=== PATIENT | male | born 1950 | race Caucasian/White ===

== ENCOUNTER → 2020-10-24 | Outpatient (CLI) | payer MEDICARE ==
--- NOTE | 2020-10-21 16:42 | PREOP HP ---
DATE OF SERVICE: 10/27/2020 PREOPERATIVE HISTORY AND PHYSICAL DATE OF ADMISSION: 10/27/2020. HISTORY OF PRESENT ILLNESS: The patient is a pleasant 70-year-old man who is having difficulty with low back pain and pain that radiates bilaterally into his anterior thighs and anterior legs as well as right buttock and right posterior thigh. The anterior thigh pain occurs with standing and activities. Leaning forward helps him with that pain. When he sits in his truck and drives any distance, his right buttock becomes painful. He notices pain, which radiates down the posterior thigh. Both of these pains occur separately. He says his back problems have been much worse in the last 6 months. Walking markedly increases his anterior thigh and anterior leg pain. Standing from a seated position is also very painful for him. He is taking tramadol, Tylenol and meloxicam. He had chiropractic treatment of 12 visits, which gave him no relief. In 1995, he underwent lumbar surgery and did well. He has chronic right knee difficulties. CURRENT MEDICATIONS: Melatonin, vitamin B12, aspirin, atorvastatin, tamsulosin, hydrochlorothiazide, citalopram, quinapril, verapamil, meloxicam, Tylenol, tramadol. PAST MEDICAL HISTORY: Arthritis, hypertension. PAST SURGICAL HISTORY: Lumbar surgery in 1995, Dr. Flor. FAMILY HISTORY: Noncontributory. SOCIAL HISTORY: Retired, , nonsmoker, never drinks alcohol. ALLERGIES: No known drug allergies. REVIEW OF SYSTEMS: A 12-point review of systems was performed and is noncontributory except that mentioned above. PHYSICAL EXAMINATION: GENERAL: Alert, pleasant, in no acute distress. HEENT: Head normocephalic, atraumatic. SKIN: Warm and dry. MUSCULOSKELETAL: Lumbar paraspinal muscle bulk is normal, restricted range of motion of the lumbar spine, [id number] tenderness of the lower lumbar spine with palpation, normal range of motion of the lower extremities bilaterally. EXTREMITIES: No clubbing, cyanosis or edema. NEUROLOGIC: Alert and oriented x 3. Normal recent and remote memory. Strength is 5/5 in bilateral lower extremities. Sensory was intact to light touch in the lower extremities. Reflexes were trace and symmetric in the lower extremities bilaterally. Negative straight leg raising bilaterally. Forward stooped gait. IMAGING DATA: I reviewed a Lumbar MRI scan at L2-L3, there is significant bilateral hypertrophic facet disease along with disc bulging which is associated with marked narrowing of the canal and relatively severe stenosis. At L3-L4, postop changes are present, but the canal is trefoil shaped worse on the right side than the left. At L5-S1, there is hypertrophic facet disease and disc bulging which is associated with right-sided lateral recess and neural foraminal narrowing. ASSESSMENT AND PLAN: I believe the problems at L2-L3 and on the right side at L3-L4 are responsible for his back and anterior thigh pain. I have recommended bilateral lumbar microdecompressive surgery at L2-L3 bilaterally and L3-L4 on the right. I explained to him that in the future, he may require surgery at L5-S1 on the right, but to consider it now would be too much surgery for him. He understands the surgery and the technique and the risk and the expected postoperative course. He would like to go ahead. We will make the arrangements. RAJESH DR: Otf TID: [id number] [place]
[~2020-10-24] MED LIST: ACET325T9 PO; ASPI-630 PO; ATOR80TA72 PO; CITA40TA12 PO; DOCU-153 PO; HYDR-2761 PO; HYDR50TA9 PO; MELA5CAP PO; MELO15TA23 PO; METH-562 PO; QUIN40TA16 PO; TAMS0.4C97 PO; TRAM-48 PO; TRAM1TAB4 PO; VERA240C2 PO; VITA1CAP PO
[2020-10-24 15:50] LABS: BASO % 1 % (0-3); EOS # 0.6 x10^3/uL (0.0-0.7); EOS % 7 % (0-3); HEMATOCRIT 44.2 % (39.0-53.0); HEMOGLOBIN 14.8 g/dL (13.0-17.5); LYMPH # 1.6 x10^3/uL (1.0-4.8); LYMPH % 19 % (24-48); MEAN CORPUSCULAR HEMOGLOBIN 34 pg (25-35); MEAN CORPUSCULAR HGB CONC 34 g/dL (31-37); MEAN CORPUSCULAR VOLUME 100 fL (79-100); MONO # 0.7 x10^3/uL (0.0-1.1); MONO % 8 % (0-9); NEUT # 5.5 x10^3/uL (1.8-7.7); NEUT % 65 % (31-73); PLATELET COUNT 269 x10^3/uL (140-400); RED BLOOD COUNT 4.41 x10^6/uL (4.30-5.70); RED CELL DISTRIBUTION WIDTH 12.9 % (11.5-14.5); WHITE BLOOD COUNT 8.4 x10^3/uL (4.0-11.0)
[2020-10-24 16:09] LABS: ALBUMIN 4.2 g/dL (3.4-5.0); ALBUMIN/GLOBULIN RATIO 1.5 (1.0-1.7); CREATININE 1.2 mg/dL (0.7-1.3); POTASSIUM 4.2 mmol/L (3.5-5.1); TOTAL BILIRUBIN 0.2 mg/dL (0.2-1.0)
== END ==
LOC: SURGPAT 13:50
PROVIDERS: ATTEND Neurological Surgery
DX: Z01.812 Encounter for preprocedural laboratory examination (principal); M54.16 Radiculopathy, lumbar region; M48.061 Spinal stenosis, lumbar region without neurogenic claudication; Z20.822 Contact with and (suspected) exposure to COVID-19
CPT/HCPCS: 80053; 85025; 87641; U0003; U0005

== ENCOUNTER 2020-10-27 08:34 | Observation (INO) | payer MEDICARE, OTHER ==
[2020-10-26 09:44] VITALS: BP 134/82
[~2020-10-27] VITALS: Ht 182.9 cm; Wt 95.8 kg
[2020-10-27] VITALS (7 sets, daily range): BP systolic 83–105; BP diastolic 42–61
[~2020-10-27 08:34] MED LIST changes: -ACET325T9 PO; -ASPI-630 PO; -ATOR80TA72 PO; +BUPIVACAINE-EPI 0.5%-1:200000 MPF 30 ML VIAL. ONE; -CITA40TA12 PO; -DOCU-153 PO; +GELATIN SPONGE SIZE 100. ONE; -HYDR-2761 PO; -HYDR50TA9 PO; +HYDROmorphone 2 MG/ML VIAL IVP PRN; +IV RINGERS,LACTATED 1000ML 1,000 ML IV SCH; +KETOROLAC 60 MG/2 ML VIAL. ONE; -MELA5CAP PO; -MELO15TA23 PO; -METH-562 PO; +MORPHINE SULFATE 2 MG/ML VIAL. IVP PRN; +PROCHLORPERAZINE 10 MG/2 ML VIAL. IVP PRN; -QUIN40TA16 PO; -TAMS0.4C97 PO; +THROMBIN TOPICAL 20,000 UNIT SPRAY.SYRN KIT TP ONE; -TRAM-48 PO; -TRAM1TAB4 PO; -VERA240C2 PO; -VITA1CAP PO; +fentaNYL PF VIAL 100 MCG/2 ML VIAL IVP PRN
[2020-10-27] MEDS ORDERED: fentaNYL PF VIAL 250 MCG/5 ML VIAL ONE (10:10)
[2020-10-27] MEDS ORDERED: REMIFENTANIL 2 MG VIAL. IV ONE (10:10)
[2020-10-27] MEDS ORDERED: PROPOFOL 10 MG/ML (20ML) VIAL. IV ONE (10:11)
[2020-10-27] MEDS ORDERED: ROCURONIUM 50 MG/5 ML VIAL. ONE (10:11)
[2020-10-27] MEDS ORDERED: PROPOFOL 50 ML IV ONE (10:11)
[2020-10-27] MEDS ORDERED: DEXAMETHASONE SOD PHOS 4 MG/ML VIAL ONE (10:12)
[2020-10-27] MEDS ORDERED: DESFLURANE > 120 MINUTES IH ONE (10:12)
[2020-10-27] MEDS ORDERED: ONDANSETRON PF 4 MG/2 ML VIAL. ONE (10:12)
[2020-10-27] MEDS ORDERED: PHENYLEPHRINE in 0.9% NACL PF 1 MG/10 ML SYRINGE. IV ONE (11:37)
[2020-10-27] MEDS ORDERED: ePHEDrine PF IN SALINE 50 MG/10 ML SYRINGE. IV ONE (11:37)
[2020-10-27] MEDS ORDERED: PHENYLEPHRINE 10 MG/ML VIAL. ONE ×2 (11:44)
[2020-10-27] MEDS ORDERED: GLYCOPYRROLATE 1 MG/5 ML VIAL. ONE ×2 (11:46→14:06)
[2020-10-27] MEDS ORDERED: NEOSTIGMINE METHYLSULFATE 5 MG/5 ML SYRINGE. ONE (14:06)
[2020-10-27] MEDS ORDERED: NALOXONE 0.4 MG/ML VIAL. ONE (14:29)
[2020-10-27] MEDS ORDERED: CALCIUM CARBONATE 500 MG TAB.CHEW PO PRN (14:30)
[2020-10-27] MEDS ORDERED: NALOXONE 0.4 MG/ML VIAL. IV PRN (14:30)
[2020-10-27] MEDS ORDERED: MAG HYDROX/ALUMINUM HYD/SIMETH 30 ML ORAL.SUSP PO PRN (14:30)
[2020-10-27] MEDS ORDERED: fentaNYL PF VIAL 100 MCG/2 ML VIAL IVP PRN (14:30)
[2020-10-27] MEDS ORDERED: diphenhydrAMINE HCL 25 MG CAPSULE PO PRN (14:30)
[2020-10-27] MEDS ORDERED: HYDROcodone/APAP 5/325MG 1 TAB TABLET PO PRN (14:30)
[2020-10-27] MEDS ORDERED: 0.9 % SODIUM CHLORIDE 10 ML DISP.SYRIN. IV PRN (14:30)
[2020-10-27] MEDS ORDERED: ACETAMINOPHEN 325 MG TABLET. PO PRN ×2 (14:30→15:30)
[2020-10-27] MEDS ORDERED: MAGNESIUM HYDROXIDE 2,400 MG/30 ML ORAL.SUSP. PO PRN (14:30)
[2020-10-27] MEDS ORDERED: METHOCARBAMOL 750 MG TABLET PO PRN (14:30)
[2020-10-27] MEDS ORDERED: fentaNYL PF VIAL 100 MCG/2 ML VIAL ONE (14:48)
[2020-10-27] MEDS: fentaNYL PF VIAL 100 MCG/2 ML VIAL IVP PRN ×2 (14:49→14:58)
[2020-10-27] MEDS ORDERED: MELA5CAP PO (14:55)
[2020-10-27] MEDS ORDERED: VERA240C2 PO (14:55)
[2020-10-27] MEDS ORDERED: ACET325T9 PO (14:55)
[2020-10-27] MEDS ORDERED: HYDR50TA9 PO (14:55)
[2020-10-27] MEDS ORDERED: QUIN40TA16 PO (14:55)
[2020-10-27] MEDS ORDERED: ATOR80TA72 PO (14:55)
[2020-10-27] MEDS ORDERED: ASPI-630 PO (14:55)
[2020-10-27] MEDS ORDERED: TAMS0.4C97 PO (14:55)
[2020-10-27] MEDS ORDERED: TRAM1TAB4 PO (14:55)
[2020-10-27] MEDS ORDERED: CITA40TA12 PO (14:55)
[2020-10-27] MEDS ORDERED: MELO15TA23 PO (14:55)
[2020-10-27] MEDS ORDERED: MORPHINE SULFATE 2 MG/ML VIAL. ONE (15:07)
[2020-10-27] MEDS ORDERED: PROCHLORPERAZINE 10 MG/2 ML VIAL. ONE (15:07)
[2020-10-27] MEDS ORDERED: ALBUMIN HUMAN 5% 500 ML IV ONE ×2 (15:26→16:00)
[2020-10-27] MEDS ORDERED: MELOXICAM 7.5 MG TABLET PO PRN (15:45)
[2020-10-27] MEDS ORDERED: POTASSIUM CL 20MEQ D5-0.45NACL 1,000 ML IV SCH (18:00)
[2020-10-27] MEDS ORDERED: TRAM-48 PO (19:03)
[2020-10-27] MEDS ORDERED: VITA1CAP PO (19:12)
[2020-10-27] MEDS: DOCUSATE SODIUM 100 MG CAPSULE. PO SCH (20:00)
[2020-10-27] MEDS: HYDROcodone/APAP 5/325MG 1 TAB TABLET PO PRN (20:01)
[2020-10-27] MEDS ORDERED: TAMSULOSIN 0.4 MG CAP.ER.24H. PO SCH (21:00)
[2020-10-27] MEDS ORDERED: ATORVASTATIN CALCIUM 40 MG TABLET. PO SCH (21:00)
[2020-10-27] MEDS ORDERED: NON FORMULARY ITEM (Melatonin 1 CAP) PO SCH (21:00)
[2020-10-28 03:29] VITALS: BP 121/64
[2020-10-28 07:00] VITALS: BP 130/69
[2020-10-28] MEDS ORDERED: CITALOPRAM 20 MG TABLET. PO SCH (08:00)
[2020-10-28] MEDS ORDERED: hydroCHLOROthiazide 25 MG TABLET PO SCH (08:00)
[2020-10-28] MEDS ORDERED: VERAPAMIL SR 120 MG TABLET.ER. PO SCH (08:00)
[2020-10-28] MEDS ORDERED: LISINOPRIL 20 MG TABLET PO SCH (09:00)
[2020-10-28] MEDS ORDERED: ASPIRIN CHEWABLE 81 MG TABLET. PO SCH (09:00)
[2020-10-28 09:12] VITALS: BP 130/69
[2020-10-28] MEDS: DOCUSATE SODIUM 100 MG CAPSULE. PO SCH (09:12)
[2020-10-28] MEDS: HYDROcodone/APAP 5/325MG 1 TAB TABLET PO PRN (09:59)
[2020-10-28] MEDS ORDERED: HYDR-2761 PO (09:59)
[2020-10-28] MEDS ORDERED: DOCU-153 PO (09:59)
[2020-10-28] MEDS ORDERED: METH-562 PO (09:59)
--- NOTE | 2020-10-28 10:01 | DISCH ---
DISCHARGE INSTRUCTIONS Condition on Discharge Condition on Discharge: Stable Activity After Discharge Activity Instructions for Disc: Activity as tolerated, Avoid exertion Other activity instructions: no driving for a week Diet after Discharge Additional Diet Restrictions: resume home diet Wound Incision Care Wound/Incision Care: Ice to area for comfort Other wound/incision instructi: may remove dressing in 48 hours if dry then may shower, no soaking Contacting the after DC Call your doctor for: Concerns you may have Follow-Up Follow up with: Dr. Hernandez's nurse in 2 weeks [phone] LOCO HERNANDEZ MD October 28, 2020 10:01
[2020-10-28 11:00] VITALS: BP 127/66
--- NOTE | 2020-10-28 12:05 | NUR ---
PT DISCHARGED HOME WITH SELF CARE. DISCHARGE INSTRUCTIONS AND PRESCRIPTIONS DISCUSSED. IV'S REMOVED. SURGICAL DRESSING WAS CHANGED BY SURGERY. PT ASSISTED TO WHEELCHAIR AND WAS SECURED IN CAR WITH .
--- NOTE | 2020-11-01 14:57 | PATHOLOGY ---
[facility] Accession Number: [id number] . 01 Material submitted: . vertebral column - LUMBAR DECOMPRESSION. Modifiers: LUMBAR . 01 Clinical history: . LUMBAR STENOSIS, RADICULOPATHY LUMBAR MICRODECOMPRESSION L2-3, L3-4 . 02 Diagnosis: Segments of fibrocartilaginous tissue and bone, lumbar decompression: - Degenerative changes of fibrocartilaginous tissue. (JPM:sultana; 11/01/2020) S 11/01/2020 0824 Local . 02 Comment: There is no evidence of an acute inflammatory process or malignancy. (JPM:sultana; 11/01/2020) . 02 Electronically signed: . Jesus Michael MD, Pathologist NPI- [id number] . 01 Gross description: . Received in formalin labeled "Melchor Gutierrez, lumbar decompression" are multiple fragments of waters-brown bone and friable rubbery soft tissue measuring in aggregate 5.9 x 5.0 x 1.0 cm. Mechatronics Technologist tissue is submitted in cassette A1 following decalcification. ([facility]; 10/29/2020) SY/[facility] 10/29/2020 1105 Local . 02 Pathologist provided ICD-10: M51.36 . 02 CPT . 814083, [id number] Specimen Comment: A courtesy copy of this report has been sent to [phone] Specimen Comment: Report sent to Specimen Comment: A duplicate report has been generated due to demographic updates. Performed at: 01 [facility] [address], [place], [place] [id number] MD Poli Sandhu MD Phone: [phone] Performed at: 02 [facility] [address], [place] [id number] MD Jesus Michael MD Phone: [phone]
--- NOTE | 2020-11-02 02:09 | HP ---
ADMIT DATE: 10/28/2020 PREOPERATIVE HISTORY AND PHYSICAL HISTORY OF PRESENT ILLNESS: The patient is a pleasant 70-year-old man who is having difficulty with low back pain and pain that radiates bilaterally into his anterior thighs and anterior legs as well as right buttock and right posterior thigh. The anterior thigh pain occurs with standing and activities. Leaning forward helps him with that pain. When he sits in his truck and drives any distance, his right buttock becomes painful. He notices pain, which radiates down the posterior thigh. Both of these pains occur separately. He says his back problems have been much worse in the last 6 months. Walking markedly increases his anterior thigh and anterior leg pain. Standing from a seated position is also very painful for him. He is taking tramadol, Tylenol and meloxicam. He had chiropractic treatment of 12 visits, which gave him no relief. In 1995, he underwent lumbar surgery and did well. He has chronic right knee difficulties. CURRENT MEDICATIONS: Melatonin, vitamin B12, aspirin, atorvastatin, tamsulosin, hydrochlorothiazide, citalopram, quinapril, verapamil, meloxicam, Tylenol, tramadol. PAST MEDICAL HISTORY: Arthritis, hypertension. PAST SURGICAL HISTORY: Lumbar surgery in 1995, Dr. Flor. FAMILY HISTORY: Noncontributory. SOCIAL HISTORY: Retired, , nonsmoker, never drinks alcohol. ALLERGIES: No known drug allergies. REVIEW OF SYSTEMS: A 12-point review of systems was performed and is noncontributory except that mentioned above. PHYSICAL EXAMINATION: GENERAL: Alert, pleasant, in no acute distress. HEENT: Head normocephalic, atraumatic. SKIN: Warm and dry. MUSCULOSKELETAL: Lumbar paraspinal muscle bulk is normal, restricted range of motion of the lumbar spine, [id number] tenderness of the lower lumbar spine with palpation, normal range of motion of the lower extremities bilaterally. EXTREMITIES: No clubbing, cyanosis or edema. NEUROLOGIC: Alert and oriented x 3. Normal recent and remote memory. Strength is 5/5 in bilateral lower extremities. Sensory was intact to light touch in the lower extremities. Reflexes were trace and symmetric in the lower extremities bilaterally. Negative straight leg raising bilaterally. Forward stooped gait. IMAGING DATA: Reviewed. Lumbar MRI scan at L2-L3, there is significant bilateral hypertrophic facet disease along with disk bulging which is associated with marked narrowing of the canal and relatively severe stenosis. At L3-L4, postop changes are present, but the canal is trefoil shaped worse on the right side than the left. At L5-S1, there is hypertrophic facet disease and disk bulging which is associated with right-sided lateral recess and neural foraminal narrowing. ASSESSMENT AND PLAN: I believe the problems at L2-L3 and on the right side at L3-L4 are responsible for his back and anterior thigh pain. I have recommended bilateral lumbar microdecompressive surgery at L2-L3 bilaterally and L3-L4 on the right. I explained to him that in the future, he may require surgery at L5-S1 on the right, but to consider it now would be too much surgery for him. He understands the surgery and the technique and the risk and the expected postoperative course. He would like to go ahead. We will make the arrangements. RAJESH ADAMSON: Otf TID: [id number]
--- NOTE | 2020-11-02 02:19 | HP ---
ADMIT DATE: 10/28/2020 PREOPERATIVE HISTORY AND PHYSICAL HISTORY OF PRESENT ILLNESS: The patient is a pleasant 70-year-old man who is having difficulty with low back pain and pain that radiates bilaterally into his anterior thighs and anterior legs as well as right buttock and right posterior thigh. The anterior thigh pain occurs with standing and activities. Leaning forward helps him with that pain. When he sits in his truck and drives any distance, his right buttock becomes painful. He notices pain, which radiates down the posterior thigh. Both of these pains occur separately. He says his back problems have been much worse in the last 6 months. Walking markedly increases his anterior thigh and anterior leg pain. Standing from a seated position is also very painful for him. He is taking tramadol, Tylenol and meloxicam. He had chiropractic treatment of 12 visits, which gave him no relief. In 1995, he underwent lumbar surgery and did well. He has chronic right knee difficulties. CURRENT MEDICATIONS: Melatonin, vitamin B12, aspirin, atorvastatin, tamsulosin, hydrochlorothiazide, citalopram, quinapril, verapamil, meloxicam, Tylenol, tramadol. PAST MEDICAL HISTORY: Arthritis, hypertension. PAST SURGICAL HISTORY: Lumbar surgery in 1995, Dr. Flro. FAMILY HISTORY: Noncontributory. SOCIAL HISTORY: Retired, , nonsmoker, never drinks alcohol. ALLERGIES: No known drug allergies. REVIEW OF SYSTEMS: A 12-point review of systems was performed and is noncontributory except that mentioned above. PHYSICAL EXAMINATION: GENERAL: Alert, pleasant, in no acute distress. HEENT: Head normocephalic, atraumatic. SKIN: Warm and dry. MUSCULOSKELETAL: Lumbar paraspinal muscle bulk is normal, restricted range of motion of the lumbar spine, [id number] tenderness of the lower lumbar spine with palpation, normal range of motion of the lower extremities bilaterally. EXTREMITIES: No clubbing, cyanosis or edema. NEUROLOGIC: Alert and oriented x 3. Normal recent and remote memory. Strength is 5/5 in bilateral lower extremities. Sensory was intact to light touch in the lower extremities. Reflexes were trace and symmetric in the lower extremities bilaterally. Negative straight leg raising bilaterally. Forward stooped gait. IMAGING DATA: I reviewed a Lumbar MRI scan at L2-L3, there is significant bilateral hypertrophic facet disease along with disk bulging which is associated with marked narrowing of the canal and relatively severe stenosis. At L3-L4, postop changes are present, but the canal is trefoil shaped worse on the right side than the left. At L5-S1, there is hypertrophic facet disease and disk bulging which is associated with right-sided lateral recess and neural foraminal narrowing. ASSESSMENT AND PLAN: I believe the problems at L2-L3 and on the right side at L3-L4 are responsible for his back and anterior thigh pain. I have recommended bilateral lumbar microdecompressive surgery at L2-L3 bilaterally and L3-L4 on the right. I explained to him that in the future, he may require surgery at L5-S1 on the right, but to consider it now would be too much surgery for him. He understands the surgery and the technique and the risk and the expected postoperative course. He would like to go ahead. We will make the arrangements. LELAND/MARGARITA DR: Otf TID: [id number] [place]
--- NOTE | 2020-11-02 10:21 | OP ---
DATE OF SURGERY: 10/27/2020 PREOPERATIVE DIAGNOSIS: Lumbar spinal stenosis L2-L3, right L3-L4 with neurogenic claudication. POSTOPERATIVE DIAGNOSIS: Lumbar spinal stenosis L2-L3, right L3-L4 with neurogenic claudication. OPERATION PERFORMED: Bilateral hemilaminotomies with decompression of dura and nerve root L2-L3, right hemilaminotomy with decompression of dura and nerve root L3-L4. The operation was done with EMG monitoring, SSEP monitoring, fluoroscopy, microscopic dissection. SPECIMEN: Decompression. SURGEON: Raffaele Winston M.D. CARTOGRAPHY PROFESSOR: MARILYN Hartley assisted with the surgery. She assisted with the exposure, the decompression as well as the closure. OPERATIVE INDICATIONS: The patient is a pleasant 70-year-old who developed severe intractable back and bilateral leg pain and had the above-mentioned findings on imaging studies. I recommended surgery after he failed to improve with chiropractic treatment. He understood the surgery and the risks. He wished to go ahead. DESCRIPTION OF PROCEDURE: Following general endotracheal anesthesia, the patient was positioned prone on the Maurice table. Lumbar region prepped and draped in the standard fashion. MARGO hose and AV impulse boots were applied for DVT prophylaxis. A microscope was draped, fluoroscopy was draped and brought in the field and monitoring was established. Ancef 2 grams was given less than one hour prior to initiation of surgery. Using fluoroscopic guidance, an incision was made from upper L2 to the inferior L4. I dissected down through skin and subcutaneous tissue and on the right side exposed L2-L3 and L3-L4. I brought in the microscope after I placed a self-retaining retractor and began at L2-L3, I burred down a very generous hemilaminotomy with a high speed air drill through the microscope using microscopic technique. I then peeled away thickened ligamentum flavum and performed a partial foraminotomy. I worked medially to the midline. There was some epidural fat medially which I removed and as I worked, I was able to fully decompress the entire region. I did palpate the disc which was flat and firm and no discectomy was warranted. I then went to L3-L4 and performed the identical operation at L3-L4 and fully decompressed that level. I then created exposure on the left side at L2-L3 and again placed my retractors and then through the microscope burred down a generous hemilaminotomy as well as a partial foraminotomy. I grasped the ligamentum flavum, peeled this from medial to laterally and away and the dura moved laterally nicely. I fully decompressed the region. Again, there was no discectomy warranted. I did move to the midline and removed the epidural fat and at this point, I felt an excellent decompression. I irrigated copiously with antibiotic solution. I did use bipolar for any muscle bleeding. I irrigated and then closed the wound in layers with absorbable suture. The skin was closed with 4-0 subcuticular stitch. I felt that the surgery went very well. AARON DR: Padilla TID: [id number] [place]
== END 2020-10-28 12:10 | disposition home or self-care (01) ==
LOC: SURG 08:34 → 4 NORTH 14:22
PROVIDERS: ADMIT Neurological Surgery; ATTEND Neurological Surgery
DX: M48.061 Spinal stenosis, lumbar region without neurogenic claudication (principal); M19.90 Unspecified osteoarthritis, unspecified site; I10 Essential (primary) hypertension; Z79.899 Other long term (current) drug therapy; Z98.890 Other specified postprocedural states; Z79.82 Long term (current) use of aspirin
CPT/HCPCS: 63047; 63048; 96360; 96361; 97116; 97162; 97530; A4213; A4364; A4930; A6254; A6258; G0378; G0379; J0690; J0780; J1100; J1885; J2310; J2370; J2405; J2704; J2710; J3010; J3480; J3490; P9045; Q0163; 76000; A4222; J2270